=== PATIENT | female | born 1965 | race Caucasian/White ===

== ENCOUNTER 2019-06-24 08:55 | Day surgery (SDC) | payer OTHER ==
[~2019-06-24 08:55] MED LIST: BP MED; BUPR150ER; CODACE30 PO; HYDACE5 PO; METHI10; NICO21TP; RXHYDACE PO
== END 2019-06-24 23:08 | disposition home or self-care (01) ==
LOC: MOI US 08:55 → MOI MAM 09:15 → MOI US 09:15
DX: N62 Hypertrophy of breast (principal)
CPT/HCPCS: 19083; 77065; A4648; G0279

== ENCOUNTER → 2023-07-15 | Outpatient (CLI) | payer OTHER ==
[2023-07-15 13:51] LABS: Source, Urine Clean Catch
[2023-07-15 18:46] LABS: Appearance, Urine Clear (Clear); Bilirubin, Urine Neg (Neg); Blood, Urine Neg (Neg); Color, Urine Yellow (P-Yellow); Glucose Qualitative, Urine Neg (Neg); Ketones, Urine Neg (Neg); Leukocyte Esterase, Urine Neg (Neg); Nitrite, Urine Neg (Neg); Protein, Urine Neg (Neg); Urobilinogen, Urine NORM (Normal)
== END | disposition home or self-care (01) ==
LOC: LAB SHORT 13:49
PROVIDERS: Nurse Practitioner Family
DX: N39.0 Urinary tract infection, site not specified (principal)
CPT/HCPCS: 81003

== ENCOUNTER → 2023-11-24 | Outpatient (CLI) | payer OTHER ==
[2023-12-04 09:20] LABS: HPV HIGH RISK BY TMA Not Detected; HPV SOURCE Cervical
== END ==
LOC: LAB 14:40 → LAB SHORT 14:40
PROVIDERS: Nurse Practitioner Family
DX: Z01.419 Encounter for gynecological examination (general) (routine) without abnormal findings (principal)
CPT/HCPCS: 87624; G0123